=== PATIENT | male | born 1960 | race Caucasian/White ===

== ENCOUNTER → 2018-09-19 10:19 | Outpatient (CLI) | payer MEDICARE, SELFPAY ==
[2018-09-19 10:59] LABS: Add Manual Diff / Slide Review NO; Basophils Percent Auto 0.3 % (0-2); Eosinophils Percent Auto 0.1 % (2-4); Hematocrit 42.3 % (41-53); Hemoglobin 14.5 g/dL (13.5-17.5); Lymphocytes Percent Auto 12.9 % (25-40); Mean Corpuscular HGB Conc 34.2 % (30-36); Mean Corpuscular Hemoglobin 30.6 PG (26-34); Mean Corpuscular Volume 89.3 fL (80-100); Monocytes Percent Auto 6.9 % (3-14); Neutrophils Absolute Auto 7700 /uL (3000-5900); Neutrophils Percent Auto 79.8 % (50-75); Platelet Count 283 X10^3/uL (150-400); Red Blood Cell Count 4.73 X10^6/uL (4.5-5.9); Red Cell Distribution Width 12.9 % (11.6-14.8); White Blood Cell Count 9.7 X10^3/uL (4.5-11.0)
[2018-09-19 11:06] LABS: Alanine Aminotransferase 32 IU/L (21-72); Albumin 4.7 g/dL (3.5-5.0); Albumin Globulin Ratio 1.9 (1.0-2.8); Alkaline Phosphatase 74 U/L (38-126); Aspartate Aminotransferase 32 IU/L (17-59); Bilirubin Total 0.5 mg/dL (0.2-1.3); Blood Urea Nitrogen 10 mg/dL (9-20); Calcium 9.2 mg/dL (8.4-10.2); Carbon Dioxide 31 mmol/L (22-32); Chloride 96 mmol/L (98-107); Cholesterol 177 mg/dL (140-199); Estimated Glomerular Filt Rate > 60.0 mL/min (>60); Globulin 2.5 g/dL (1.7-4.1); Glucose 102 mg/dL (80-110); HDL Cholesterol 59 mg/dL (40-60); HEMOLYSIS < 15 (0-50); LDL Cholesterol Calculated 92 mg/dL (<100); Potassium 3.9 mmol/L (3.4-5.1); Sodium 138 mmol/L (137-145); Total Protein 7.2 g/dL (6.3-8.2); Triglycerides 129 mg/dL (35-150)
== END ==
PROVIDERS: PCP Family Medicine; Visit Provider Family Medicine
DX: E78.5 Hyperlipidemia, unspecified (principal); I10 Essential (primary) hypertension
CPT/HCPCS: 36415; 80053; 80061; 85025

== ENCOUNTER → 2019-09-08 09:31 | Outpatient (CLI) | payer MEDICARE, SELFPAY ==
[2019-09-08 11:04] LABS: Add Manual Diff / Slide Review NO; Basophils Absolute Auto 0 /uL (0-100); Basophils Percent Auto 0.5 % (0-2); Eosinophils Absolute Auto 0 /uL (0-450); Eosinophils Percent Auto 0.5 % (2-4); Hematocrit 46.6 % (41-53); Hemoglobin 15.9 g/dL (13.5-17.5); Lymphocytes Absolute Auto 1600 /uL (1100-4500); Lymphocytes Percent Auto 17.1 % (25-40); Mean Corpuscular HGB Conc 34.2 % (30-36); Mean Corpuscular Hemoglobin 31.2 PG (26-34); Mean Corpuscular Volume 91.2 fL (80-100); Monocytes Absolute Auto 700 /uL (0-900); Neutrophils Absolute Auto 6900 /uL (1500-7000); Neutrophils Percent Auto 73.9 % (50-75); Platelet Count 289 X10^3/uL (150-400); Red Blood Cell Count 5.11 X10^6/uL (4.5-5.9); White Blood Cell Count 9.3 X10^3/uL (4.5-11.0)
[2019-09-08 11:09] LABS: Alanine Aminotransferase 44 IU/L (<50); Albumin 5.1 g/dL (3.5-5.0); Alkaline Phosphatase 72 U/L (38-126); Aspartate Aminotransferase 39 IU/L (17-59); Bilirubin Total 0.7 mg/dL (0.2-1.3); Blood Urea Nitrogen 13 mg/dL (9-20); Calcium 10.1 mg/dL (8.4-10.2); Carbon Dioxide 28 mmol/L (22-32); Chloride 98 mmol/L (98-107); Cholesterol 288 mg/dL (140-199); Estimated Glomerular Filt Rate > 60.0 mL/min (>60); Globulin 2.6 g/dL (1.7-4.1); Glucose 108 mg/dL (80-110); HDL Cholesterol 52 mg/dL (40-60); HEMOLYSIS < 15 (0-50); LDL Cholesterol Calculated 167 mg/dL (<100); Potassium 4.9 mmol/L (3.4-5.1); Sodium 138 mmol/L (137-145); Total Protein 7.7 g/dL (6.3-8.2); Triglycerides 345 mg/dL (35-150); Uric Acid 7.1 mg/dL (3.5-8.5)
[2019-09-08 11:12] LABS: Erythrocyte Sedimentation Rate 1 MM/HR (0-15)
[2019-09-08 11:38] LABS: Prostate Specific Antigen 2.36 ng/mL (0.10-4.00)
== END ==
PROVIDERS: PCP Family Medicine; Visit Provider Family Medicine
DX: Z12.5 Encounter for screening for malignant neoplasm of prostate (principal); E78.5 Hyperlipidemia, unspecified; I10 Essential (primary) hypertension; M10.9 Gout, unspecified; M19.90 Unspecified osteoarthritis, unspecified site
CPT/HCPCS: 36415; 80053; 80061; 84153; 84550; 85025; 85651

== ENCOUNTER → 2020-04-08 11:35 | Outpatient (CLI) | payer MEDICARE, SELFPAY ==
[2020-04-08 12:59] LABS: Cholesterol 176 mg/dL (140-199); HDL Cholesterol 57 mg/dL (40-60); LDL Cholesterol Calculated 91 mg/dL (<100); Triglycerides 140 mg/dL (35-150)
[2020-04-08 14:19] LABS: BUN Creatinine Ratio 16.7 (6-22); Blood Urea Nitrogen 16 mg/dL (9-20); Carbon Dioxide 28 mmol/L (22-32); Chloride 96 mmol/L (98-107); Estimated Glomerular Filt Rate > 60.0 mL/min (>60); Glucose 110 mg/dL (80-110); HEMOLYSIS < 15 (0-50); Potassium 4.5 mmol/L (3.4-5.1); Sodium 134 mmol/L (137-145)
== END ==
PROVIDERS: PCP Student in an Organized Health Care Education/Training Program; Referring Provider Student in an Organized Health Care Education/Training Program; Visit Provider Student in an Organized Health Care Education/Training Program
DX: E78.2 Mixed hyperlipidemia (principal); I10 Essential (primary) hypertension
CPT/HCPCS: 36415; 80048; 80061

== ENCOUNTER 2020-06-13 13:31 | Observation (INO) | payer MEDICARE, SELFPAY ==
[2020-06-13] VITALS (11 sets, daily range): BP systolic 130–186; BP diastolic 76–90; PULSE 71–98; RESP 11–23; TEMP 36.4–37.2; O2SAT 98–100; BMI 25.8
--- NOTE | 2020-06-13 13:57 | DI.RAD.S_ITS ---
PROCEDURE: XR CHEST 1V INDICATIONS: chest pain TECHNIQUE: One view of the chest was acquired. COMPARISON: None. FINDINGS: Surgical changes and devices: None. Lungs and pleura: Lungs are clear. No pleural effusions or pneumothorax. Mediastinum: Mediastinal contours appear normal. Heart size is normal. Bones and chest wall: No suspicious bony lesions. Overlying soft tissues appear unremarkable. IMPRESSION: Normal for age, source of current hiatal hernia symptoms is not seen. Dictated by: Michael Maradiaga M.D. on 06/13/2020 at 14:51 Approved by: Michael Maradiaga M.D. on 06/13/2020 at 14:51
[2020-06-13 14:24] LABS: Add Manual Diff / Slide Review NO; Basophils Absolute Auto 0 /uL (0-100); Basophils Percent Auto 0.2 % (0-2); Eosinophils Absolute Auto 0 /uL (0-450); Eosinophils Percent Auto 0.2 % (2-4); Hematocrit 38.7 % (41-53); Hemoglobin 13.5 g/dL (13.5-17.5); Lymphocytes Absolute Auto 1200 /uL (1100-4500); Lymphocytes Percent Auto 12.3 % (25-40); Mean Corpuscular HGB Conc 34.8 % (30-36); Mean Corpuscular Hemoglobin 30.3 PG (26-34); Monocytes Absolute Auto 800 /uL (0-900); Monocytes Percent Auto 7.9 % (3-14); Neutrophils Absolute Auto 7800 /uL (1500-7000); Neutrophils Percent Auto 79.4 % (50-75); Platelet Count 266 X10^3/uL (150-400); Red Blood Cell Count 4.45 X10^6/uL (4.5-5.9); Red Cell Distribution Width 12.5 % (11.6-14.8); White Blood Cell Count 9.9 X10^3/uL (4.5-11.0)
[2020-06-13 14:31] LABS: Prothrombin Time 12.1 SECONDS (10.1-12.7)
[2020-06-13 14:34] LABS: PTT Partial Thromboplastin Tim 32 SECONDS (26.4-36.2)
[2020-06-13 14:36] LABS: Alanine Aminotransferase 28 IU/L (<50); Albumin 4.7 g/dL (3.5-5.0); Albumin Globulin Ratio 1.8 (1.0-2.8); Alkaline Phosphatase 68 U/L (38-126); Aspartate Aminotransferase 29 IU/L (17-59); BUN Creatinine Ratio 12.6 (6-22); Bilirubin Total 0.8 mg/dL (0.2-1.3); Blood Urea Nitrogen 13 mg/dL (9-20); Calcium 9.5 mg/dL (8.4-10.2); Carbon Dioxide 27 mmol/L (22-32); Chloride 88 mmol/L (98-107); Creatine Kinase 73 U/L (55-170); Estimated Glomerular Filt Rate > 60.0 mL/min (>60); Globulin 2.6 g/dL (1.7-4.1); Glucose 99 mg/dL (80-110); HEMOLYSIS < 15 (0-50); Lipase 89 U/L (23-300); Potassium 3.2 mmol/L (3.4-5.1); Sodium 127 mmol/L (137-145); Total Protein 7.3 g/dL (6.3-8.2)
[2020-06-13 14:47] LABS: Troponin I < 0.012 ng/mL (0.01-0.034)
--- NOTE | 2020-06-13 15:00 | ED_ITS ---
HPI - Chest Pain General Chief Complaint: Chest Pain Stated Complaint: Thinks Had Covid in January, Low BP,Left Sided Chest Time Seen by Provider: 06/13/20 14:03 Source: patient Mode of arrival: Ambulatory History of Present Illness HPI narrative: Patient complains of off and on left-sided chest may raise his left arm and back for the past few days. Has had a dyspnea. Diaphoresis but no nausea. Off and on dyspnea. No syncope, patient states blood pressure at home has been low below 100. No fever chills cough cold congestion. Patient states not felt like himself. Has felt tired and weak Related Data Home Medications Medication Instructions Recorded Confirmed atenolol 25 mg PO QDAY 06/13/20 06/13/20 Previous Rx's Medication Instructions Recorded cyclobenzaprine 10 mg tablet 10 mg PO BID #180 tab 04/08/20 lisinopril 20 1 tab PO QDAY #90 tab 04/08/20 mg-hydrochlorothiazide 25 mg tablet simvastatin 20 mg tablet 20 mg PO DAILY #90 tab 04/08/20 oxycodone 10 mg tablet 10 mg PO DAILY PRN #60 tab 05/17/20 Allergies Allergy/AdvReac Type Severity Reaction Status Date / Time aspirin [ASPIRIN] Allergy Unknown Verified 10/26/19 10:04 Penicillins [PENICILLINS] Allergy Unknown Verified 10/26/19 10:04 Review of Systems Review of Systems Narrative: GENERAL: Denies chills, malaise, fever, sweats. Complains of malaise and fatigue HEENT: Denies sinus pain, ear pain, sore throat, difficulty swallowing, dizziness. RESPIRATORY: Denies dyspnea, cough, wheezing, hemoptysis, sputum. CARDIOVASCULAR: Denies palpitations, orthopnea, edema, complains of chest pain GASTROINTESTINAL: Denies nausea, vomiting, abdominal pain, diarrhea, constipation, melena. : Denies dysuria, frequency, incontinence, hematuria, urinary retention. MUSCULOSKELETAL: denies weakness, joint pain, or bony pain SKIN: Denies rash, skin lesions, or other NEUROLOGIC: Denies weakness, headache, numbness, change in speech, confusion, seizures, incoordination. PSYCHIATRIC: No concerning psychosocial issues. ROS Unobtainable: All systems reviewed & are unremarkable except as noted in HPI and below Patient History Medical History Heart valve disease (Acute) Hx of myocardial infarction (Acute) Labile hypertension (Chronic) Surgical History History of repair of hiatal hernia Status post laparoscopic cholecystectomy (11/28/99) Family History Father Age: 89 Essential hypertension Mother Age: 87 Malignant neoplasm of urinary bladder, unspecified site Kidney malignancy, unspecified laterality Essential hypertension Hyperlipidemia Cerebrovascular accident (CVA), unspecified mechanism Social History household members: none Smoking Status: Never smoker Smokeless tobacco user: chewing tobacco alcohol intake: current Smoking Status: Never smoker alcohol intake frequency: holidays/special occasions only Substance Use Type: does not use Exam Narrative Exam Narrative: GENERAL: patient appears stated age. Well-nourished, well- developed patient, in no distress, not toxic HEAD: Atraumatic. Normocephalic. EYES: Pupils equal round and reactive. Extraocular motions intact. No scleral icterus. No injection or drainage. ENT: Nose without bleeding, purulent drainage. Throat without erythema, tonsillar hypertrophy or exudate. Airway patent. NECK: Trachea midline. Non tender CARDIOVASCULAR: Regular rate and rhythm without murmurs, gallops, or rubs. RESPIRATORY: Clear to auscultation. Breath sounds equal bilaterally. No wheezes, rales, or rhonchi. GASTROINTESTINAL: Abdomen soft, non-tender, nondistended. EXTREMITIES: No edema or joint tenderness. BACK: Nontender without deformity or crepitance. No flank tenderness. NEURO: AOx3. SKIN: No rash or erythema of visible areas PSYCH: Not anxious, is cooperative Initial Vital Signs Initial Vital Signs: Vital Signs Temperature 99.0 F 06/13/20 13:49 Pulse Rate 98 H 06/13/20 13:49 Respiratory Rate 16 06/13/20 13:49 Blood Pressure 186/90 H 06/13/20 13:49 Pulse Oximetry 98 06/13/20 13:49 Course Course Course Narrative: Chest pain-free here. Not requiring nitroglycerin. Patient allergic to aspirin. Decision to Admit Date: 06/13/20 Decision to Admit time: 17:07 Orders Ordered: Acetaminophen (Tylenol) 650 mg PO Q6HR PRN PRN Reason: Fever/Mild Pain (1-3) Cyclobenzaprine HCl (Flexeril) 10 mg PO BID [facility] Last Admin: 06/14/20 00:25 Dose: 10 mg Documented by: ALISHA Cyclobenzaprine HCl (Flexeril) 5 mg PO PRN PRN PRN Reason: Sleep Docusate Sodium (Colace) 100 mg PO BID [facility] Last Admin: 06/13/20 21:38 Dose: Not Given Documented by: ALISHA Sodium Chloride (Normal Saline 0.9%) 1,000 mls @ 100 mls/hr IV CONT [facility] Last Infusion: 06/14/20 05:07 Dose: 100 mls/hr Documented by: Admin: 06/13/20 21:27 Dose: 50 mls/hr Documented by: ALISHA Morphine Sulfate (Morphine) 2 mg IV Q4HR PRN PRN Reason: Pain, Moderate (4-6) Naloxone HCl (Narcan) 0.2 mg IV Q2MIN PRN PRN Reason: Opiate Reversal Nitroglycerin (Nitrostat) 0.4 mg SL [id number] PRN PRN Reason: Chest Pain Ondansetron HCl (Zofran) 4 mg IV Q6HR PRN PRN Reason: Nausea And Vomiting Oxycodone HCl (Percolone) 5 mg PO Q6H PRN PRN Reason: Pain, Moderate (4-6) Simvastatin (Zocor) 20 mg PO DAILY [facility] Discontinued Medications Potassium Chloride (Klor-Con M20) 40 meq PO NOW ONE Stop: 06/14/20 04:58 Last Admin: 06/14/20 05:06 Dose: 40 meq Documented by: DREW Reevaluation(s) Reevaluation #1: Currently no chest pain no complaints at this time Time: 17:07 Consultations Consultation #1: Spoke with hospitalist Dr. Street, will admit observation Time: 17:07 Vital Signs Vital signs: Vital Signs - 8 hr 06/13/20 13:49 06/13/20 15:00 06/13/20 15:30 Temperature 99.0 F Pulse Rate 98 H 81 75 Respiratory Rate 16 17 16 Blood Pressure 186/90 H Pulse Oximetry 98 100 100 MDM - Chest Pain Differential Diagnosis Differential diagnosis: Likely stable angina, unstable angina pectoris and chest pain Lab Data Attestation: I reviewed the patient's lab results. Result diagrams: 06/14/20 04:45 06/14/20 04:45 Labs: Lab Results 06/13/20 06/13/20 06/13/20 Range/Units 14:10 14:10 14:10 WBC 9.9 (4.5-11.0) X10^3/uL RBC 4.45 L (4.5-5.9) X10^6/uL Hgb 13.5 (13.5-17.5) g/dL Hct 38.7 L (41-53) % MCV 87.0 (80-100) fL MCH 30.3 (26-34) PG MCHC 34.8 (30-36) % RDW 12.5 (11.6-14.8) % Plt Count 266 (150-400) X10^3/uL Neut % (Auto) 79.4 H (50-75) % Lymph % (Auto) 12.3 L (25-40) % [place] % (Auto) 7.9 (3-14) % Eos % (Auto) 0.2 L (2-4) % Baso % (Auto) 0.2 (0-2) % Neut # (Auto) 7800 H (9131-6903) /uL Lymph # (Auto) 1200 (7206-0589) /uL [place] # (Auto) 800 (0-900) /uL Eos # (Auto) 0 (0-450) /uL Baso # (Auto) 0 (0-100) /uL PT 12.1 (10.1-12.7) SECONDS INR 1.0 (0.9-1.3) APTT 32 (26.4-36.2) SECONDS D-Dimer (<230) ng/mL Sodium 127 L (137-145) mmol/L Potassium 3.2 L (3.4-5.1) mmol/L Chloride 88 L (98-107) mmol/L Carbon Dioxide 27 (22-32) mmol/L BUN 13 (9-20) mg/dL Creatinine 1.03 (0.66-1.25) mg/dL Estimated GFR > 60.0 (>60) mL/min BUN/Creatinine Ratio 12.6 (6-22) Glucose 99 (80-110) mg/dL Calcium 9.5 (8.4-10.2) mg/dL Total Bilirubin 0.8 (0.2-1.3) mg/dL AST 29 (17-59) IU/L ALT 28 (<50) IU/L Alkaline Phosphatase 68 (38-126) U/L Total Creatine Kinase 73 (55-170) U/L CK-MB (CK-2) TNP CK-MB (CK-2) Rel Index TNP Troponin I < 0.012 (0.01-0.034) ng/mL Total Protein 7.3 (6.3-8.2) g/dL Albumin 4.7 (3.5-5.0) g/dL Globulin 2.6 (1.7-4.1) g/dL Albumin/Globulin Ratio 1.8 (1.0-2.8) Lipase 89 (23-300) U/L U Opiates 300ng/mL cut (Negative) Ur Oxycodone Screen (Negative) Urine Methadone Screen (Negative) Ur Barbiturates Screen (Negative) U Tricyclic Antidepress (Negative) Ur Phencyclidine Scrn (Negative) Ur Amphetamines Screen (Negative) U Methamphetamines Scrn (Negative) Ur MDMA Scrn (Ecstasy) (Negative) U Benzodiazepines Scrn (Negative) Urine Cocaine Screen (Negative) U Marijuana (THC) Screen (Negative) 06/13/20 06/13/20 Range/Units 14:21 17:22 WBC (4.5-11.0) X10^3/uL RBC (4.5-5.9) X10^6/uL Hgb (13.5-17.5) g/dL Hct (41-53) % MCV (80-100) fL MCH (26-34) PG MCHC (30-36) % RDW (11.6-14.8) % Plt Count (150-400) X10^3/uL Neut % (Auto) (50-75) % Lymph % (Auto) (25-40) % [place] % (Auto) (3-14) % Eos % (Auto) (2-4) % Baso % (Auto) (0-2) % Neut # (Auto) (1003-3522) /uL Lymph # (Auto) (9999-4202) /uL [place] # (Auto) (0-900) /uL Eos # (Auto) (0-450) /uL Baso # (Auto) (0-100) /uL PT (10.1-12.7) SECONDS INR (0.9-1.3) APTT (26.4-36.2) SECONDS D-Dimer < 200 (<230) ng/mL Sodium (137-145) mmol/L Potassium (3.4-5.1) mmol/L Chloride (98-107) mmol/L Carbon Dioxide (22-32) mmol/L BUN (9-20) mg/dL Creatinine (0.66-1.25) mg/dL Estimated GFR (>60) mL/min BUN/Creatinine Ratio (6-22) Glucose (80-110) mg/dL Calcium (8.4-10.2) mg/dL Total Bilirubin (0.2-1.3) mg/dL AST (17-59) IU/L ALT (<50) IU/L Alkaline Phosphatase (38-126) U/L Total Creatine Kinase (55-170) U/L CK-MB (CK-2) CK-MB (CK-2) Rel Index Troponin I (0.01-0.034) ng/mL Total Protein (6.3-8.2) g/dL Albumin (3.5-5.0) g/dL Globulin (1.7-4.1) g/dL Albumin/Globulin Ratio (1.0-2.8) Lipase (23-300) U/L U Opiates 300ng/mL cut Negative (Negative) Ur Oxycodone Screen Negative (Negative) Urine Methadone Screen Negative (Negative) Ur Barbiturates Screen Negative (Negative) U Tricyclic Antidepress Positive H (Negative) Ur Phencyclidine Scrn Negative (Negative) Ur Amphetamines Screen Negative (Negative) U Methamphetamines Scrn Negative (Negative) Ur MDMA Scrn (Ecstasy) Negative (Negative) U Benzodiazepines Scrn Negative (Negative) Urine Cocaine Screen Negative (Negative) U Marijuana (THC) Screen Negative (Negative) Imaging Data Chest x-ray: Radiologist's Impression: [address] [place] [id number] XRay Report Signed Patient: Regino Ingram [facility]#: [id number] : 8Acct:[id number] Age/Sex: 60 / MDate of Service: 06/13/20 Loc: ED Accession Number: [id number] Procedure: XR chest 1V Ordering Provider: Enzo Hermosillo MD PROCEDURE: XR CHEST 1V INDICATIONS: chest pain TECHNIQUE: One view of the chest was acquired. COMPARISON: None. FINDINGS: Surgical changes and devices: None. Lungs and pleura: Lungs are clear. No pleural effusions or pneumothorax. Mediastinum: Mediastinal contours appear normal. Heart size is normal. Bones and chest wall: No suspicious bony lesions. Overlying soft tissues appear unremarkable. IMPRESSION: Normal for age, source of current hiatal hernia symptoms is not seen. Dictated by: Michael Maradiaga M.D. on 06/13/2020 at 14:51 Approved by: Michael Maradiaga M.D. on 06/13/2020 at 14:51 ECG Data Attestation: I personally reviewed and interpreted this ECG as follows: Interpretation: Sinus rhythm ventricular rate 84, no ST elevation or depression MDM Narrative Medical decision making narrative: Not had stress test over 13 years. Apparent history of coronary disease. Patient does not smoke cigarettes. Appropriate for admission hospital for stress test. Left-sided chest pain rating left arm. With hypokalemia as well as hyponatremia Discharge Plan Departure Patient Disposition: Admitted as Observation Clinical Impression: Chest pain Qualifiers: Chest pain type: unspecified Qualified Code(s): R07.9 - Chest pain, unspecified Discharge Date/Time: 06/13/20 18:57 Referrals: Roland Bentley MD [Primary Care Provider] - Admit Date/Time: 06/13/20 18:02 Admit Provider: Georgia Street ED Sign-out Cosign ED Attending Cosignature Attestation: I was immediately available in the department for consultation. This documentation has been reviewed and I agree with assessment and plan. Supervised by Enzo Hermosillo MD
[2020-06-13 15:27] LABS: D Dimer < 200 ng/mL (<230)
[2020-06-13 17:44] LABS: UR Morphine/Opiate cutoff 300 Negative (Negative); Ur Creatinine Normal (Normal); Ur Specific Gravity Normal (Normal); Urine Amphetamines Negative (Negative); Urine Barbiturates Negative (Negative); Urine Benzodiazepines Negative (Negative); Urine Cocaine Negative (Negative); Urine MDMA Negative (Negative); Urine Methadone Negative (Negative); Urine Methamphetamines Negative (Negative); Urine Oxycodone Negative (Negative); Urine Phencyclidine Negative (Negative); Urine Tetrahydrocannabinol Negative (Negative); Urine Tricyclic Antidepressant Positive (Negative); Urine pH Normal (Normal)
[2020-06-13 21:24] LABS: Creatine Kinase 66 U/L (55-170); Magnesium 1.8 mg/dL (1.6-2.3)
[2020-06-13] MEDS: DOCUSATE 100 MG CAPSULE PO (21:27)
[2020-06-13] MEDS: SODIUM CHLORIDE 0.9% 1,000 ML 50 ML IV (21:27)
[2020-06-13 21:36] LABS: Troponin I < 0.012 ng/mL (0.01-0.034)
[2020-06-13 23:23] LABS: COVID19 -Nasal RAPID Negative (Negative)
[2020-06-14] VITALS (9 sets, daily range): BP systolic 115–149; BP diastolic 56–87; PULSE 64–103; RESP 18–22; TEMP 36.2–37.2; O2SAT 96–100
[2020-06-14] MEDS: CYCLOBENZAPRINE 10 MG TABLET PO ×2 (00:25→09:43)
--- NOTE | 2020-06-14 04:46 | P.HP_ITS ---
History of Present Illness History of Present Illness Date Patient Seen: 06/13/20 Time Patient Seen: 23:15 Chief complaint: Thinks Had Covid in January, Low BP,Left Sided Chest Narrative: Regino Ingram is a 60-year-old male with a stated history of an CO at the age of 33 due to ?bad valves, GERD, hyperlipidemia, hiatal hernia, and chronic back pain currently disabled presented to the emergency department with chest pain and wanted to find out whether not he had COVID-19 back in January. He stated that the pain started 9 days ago and affects his shoulder and left arm. He read it resolved when he came into the emergency department. He did state that he was diaphoretic, he has had shortness of breath which has since resolved today, he states the prior history of cardiac issues, he has had nausea only no vomiting, denies dysuria, he states he has chronic muscle aches and pains particularly his back, he has a history of rosacea, and he states that his arms become numb and it is relieved by burping. I note in his prior PCP records that the patient has been reluctant to take blood pressure medications and anti hyperlipidemic medications stating that statins have caused bladder cancer in people. He wanted to know if there was any chance we could order a test to determine whether he had a hiatal hernia. In the emergency department they did acute abdominal chest CT which ruled out any acute process the report did not conclude he had a hiatal hernia. Patient's 1st 2 troponins were normal. Temperature 97.3?, blood pressure 125/66, heart rate 69, respiratory rate 20, oxygen saturation of 100% on room air, he weighs 83 kilos, BMI of 25.8. WBC 9.9, RBC 4.4, hemoglobin 13.5, hematocrit 38.7, platelet count 266, D-dimer was negative, sodium 127, potassium 3.2, chloride 88, CO2 27, creatinine 1.03, BUN 13, GFR greater than 60, glucose 99, calcium 9.5, magnesium 1.8, liver enzymes are within normal limits, UDS was negative except for tricyclic antidepressants, COVID-19 negative. Patient History Medical History Heart valve disease (Acute) Hx of myocardial infarction (Acute) Labile hypertension (Chronic) Surgical History History of repair of hiatal hernia Status post laparoscopic cholecystectomy (11/28/99) Family & Social History Family History Father Age: 89 Essential hypertension Mother Age: 87 Malignant neoplasm of urinary bladder, unspecified site Kidney malignancy, unspecified laterality Essential hypertension Hyperlipidemia Cerebrovascular accident (CVA), unspecified mechanism Social History: household members none Prior Living Arrangements House Safety & Behavioral: Feels Safe in Current Yes Environment Been Physically Hurt or No Threatened By a Person Suicidal Ideation Description None Suicide Plan Description No Plan Tobacco & Substance use: Smoking Status Never smoker alcohol intake current alcohol intake frequency holiday/special occasion Substance Use Type does not use Meds Home Medications and Allergies Home Medications Medication Instructions Recorded Confirmed Type cyclobenzaprine 10 mg tablet 10 mg PO BID #180 tab 04/08/20 06/13/20 Rx lisinopril 20 1 tab PO QDAY #90 tab 04/08/20 06/13/20 Rx mg-hydrochlorothiazide 25 mg tablet simvastatin 20 mg tablet 20 mg PO DAILY #90 tab 04/08/20 06/13/20 Rx oxycodone 10 mg tablet 10 mg PO DAILY PRN #60 tab 05/17/20 06/13/20 Rx atenolol 25 mg PO QDAY 06/13/20 06/13/20 History Allergies Allergy/AdvReac Type Severity Reaction Status Date / Time aspirin [ASPIRIN] Allergy Unknown Verified 10/26/19 10:04 Penicillins [PENICILLINS] Allergy Unknown Verified 10/26/19 10:04 Review of Systems Review of Systems ROS: Yes All systems reviewed with the patient and are negative except as otherwise documented Exam Vital Signs (past 8 hours): - 06/14/20 00:34 06/14/20 04:03 Temperature 97.1 F L 97.3 F L Pulse Rate 64 69 Respiratory Rate 22 20 Blood Pressure 115/56 L 125/66 Pulse Oximetry 100 100 Oxygen Delivery Method Room Air Oxygen Flow Rate 0 Narrative Exam Narrative: Gen: Alert, oriented, well-developed 60 y.o. male, somewhat disheveled HEENT: normocephalic, atraumatic, conjunctiva clear, sclera non-icteric, oral mucosa pink and moist Neck: supple, full ROM, no JVD, trachea is midline Resp: Lungs CTA, non-labored breathing CV: RRR, no murmur or rubs Abd: soft, non-tender, normoactive BTs Skin: Facial flushing, no lesions or rashes, dry and intact Neuro: Alert and oriented X 4 w/no focal deficits. Speech clear and coherent. Extremities: moves all 4 extremities, is ambulatory, negative Lico?s sign Psyche: normal mood and affect. Objective Labs Result Diagrams: 06/13/20 14:10 06/13/20 14:10 Labs: Laboratory Results - last 24 hr 06/13/20 06/13/20 06/13/20 14:10 14:10 14:10 WBC 9.9 RBC 4.45 L Hgb 13.5 Hct 38.7 L MCV 87.0 MCH 30.3 MCHC 34.8 RDW 12.5 Plt Count 266 Neut % (Auto) 79.4 H Lymph % (Auto) 12.3 L [place] % (Auto) 7.9 Eos % (Auto) 0.2 L Baso % (Auto) 0.2 Neut # (Auto) 7800 H Lymph # (Auto) 1200 [place] # (Auto) 800 Eos # (Auto) 0 Baso # (Auto) 0 PT 12.1 INR 1.0 APTT 32 D-Dimer Sodium 127 L Potassium 3.2 L Chloride 88 L Carbon Dioxide 27 BUN 13 Creatinine 1.03 Estimated GFR > 60.0 BUN/Creatinine Ratio 12.6 Glucose 99 Calcium 9.5 Magnesium Total Bilirubin 0.8 AST 29 ALT 28 Alkaline Phosphatase 68 Total Creatine Kinase 73 CK-MB (CK-2) TNP CK-MB (CK-2) Rel Index TNP Troponin I < 0.012 Total Protein 7.3 Albumin 4.7 Globulin 2.6 Albumin/Globulin Ratio 1.8 Lipase 89 Nasal Screen MRSA (PCR) U Opiates 300ng/mL cut Ur Oxycodone Screen Urine Methadone Screen Ur Barbiturates Screen U Tricyclic Antidepress Ur Phencyclidine Scrn Ur Amphetamines Screen U Methamphetamines Scrn Ur MDMA Scrn (Ecstasy) U Benzodiazepines Scrn Urine Cocaine Screen U Marijuana (THC) Screen COVID-19 PCR 06/13/20 06/13/20 06/13/20 14:21 17:22 21:04 WBC RBC Hgb Hct MCV MCH MCHC RDW Plt Count Neut % (Auto) Lymph % (Auto) [place] % (Auto) Eos % (Auto) Baso % (Auto) Neut # (Auto) Lymph # (Auto) [place] # (Auto) Eos # (Auto) Baso # (Auto) PT INR APTT D-Dimer < 200 Sodium Potassium Chloride Carbon Dioxide BUN Creatinine Estimated GFR BUN/Creatinine Ratio Glucose Calcium Magnesium Total Bilirubin AST ALT Alkaline Phosphatase Total Creatine Kinase 66 CK-MB (CK-2) TNP CK-MB (CK-2) Rel Index TNP Troponin I < 0.012 Total Protein Albumin Globulin Albumin/Globulin Ratio Lipase Nasal Screen MRSA (PCR) U Opiates 300ng/mL cut Negative Ur Oxycodone Screen Negative Urine Methadone Screen Negative Ur Barbiturates Screen Negative U Tricyclic Antidepress Positive H Ur Phencyclidine Scrn Negative Ur Amphetamines Screen Negative U Methamphetamines Scrn Negative Ur MDMA Scrn (Ecstasy) Negative U Benzodiazepines Scrn Negative Urine Cocaine Screen Negative U Marijuana (THC) Screen Negative COVID-19 PCR 06/13/20 06/13/20 06/13/20 21:04 22:00 22:00 WBC RBC Hgb Hct MCV MCH MCHC RDW Plt Count Neut % (Auto) Lymph % (Auto) [place] % (Auto) Eos % (Auto) Baso % (Auto) Neut # (Auto) Lymph # (Auto) [place] # (Auto) Eos # (Auto) Baso # (Auto) PT INR APTT D-Dimer Sodium Potassium Chloride Carbon Dioxide BUN Creatinine Estimated GFR BUN/Creatinine Ratio Glucose Calcium Magnesium 1.8 Total Bilirubin AST ALT Alkaline Phosphatase Total Creatine Kinase CK-MB (CK-2) CK-MB (CK-2) Rel Index Troponin I Total Protein Albumin Globulin Albumin/Globulin Ratio Lipase Nasal Screen MRSA (PCR) U Opiates 300ng/mL cut Ur Oxycodone Screen Urine Methadone Screen Ur Barbiturates Screen U Tricyclic Antidepress Ur Phencyclidine Scrn Ur Amphetamines Screen U Methamphetamines Scrn Ur MDMA Scrn (Ecstasy) U Benzodiazepines Scrn Urine Cocaine Screen U Marijuana (THC) Screen COVID-19 PCR Cancelled Negative 06/14/20 01:33 WBC RBC Hgb Hct MCV MCH MCHC RDW Plt Count Neut % (Auto) Lymph % (Auto) [place] % (Auto) Eos % (Auto) Baso % (Auto) Neut # (Auto) Lymph # (Auto) [place] # (Auto) Eos # (Auto) Baso # (Auto) PT INR APTT D-Dimer Sodium Potassium Chloride Carbon Dioxide BUN Creatinine Estimated GFR BUN/Creatinine Ratio Glucose Calcium Magnesium Total Bilirubin AST ALT Alkaline Phosphatase Total Creatine Kinase CK-MB (CK-2) CK-MB (CK-2) Rel Index Troponin I Total Protein Albumin Globulin Albumin/Globulin Ratio Lipase Nasal Screen MRSA (PCR) Negative for mrsa U Opiates 300ng/mL cut Ur Oxycodone Screen Urine Methadone Screen Ur Barbiturates Screen U Tricyclic Antidepress Ur Phencyclidine Scrn Ur Amphetamines Screen U Methamphetamines Scrn Ur MDMA Scrn (Ecstasy) U Benzodiazepines Scrn Urine Cocaine Screen U Marijuana (THC) Screen COVID-19 PCR Assessment & Plan Assessment & Plan narrative: Regino Ingram will be observed overnight and ruled out for chest pain. It is more likely due to reflux, but his stated history places him in a higher risk category. Mild metabolic derangement with hypokalemia and hyponatremia, acute, present on admission -NS at 100 ml/hour -He is administered oral potassium 40 mEq X 1 -Recheck lytes in the am. Chest pain with fatigue -Nuclear stress test -Echocardiogram -Holding his atenolol Essential hypertension, chronic -Continue home dose of lisinopril 20 mg po daily -Resume beta [place] after stress test HLD, chronic -Continue home dose of simvastatin 20 mg po daily -Fasting lipid panel in the am CAD -Patient stated he did not undergo cardiac catheterization -Effort should be made to obtain old record, however this was 30 plus years ago -ASA not ordered due to patient's stated allergy, will need to confirm. Chronic back pain secondary to an old lifting injury -Continue oxycodone 5 mg po q 6 hours for pain -Continue home dose of cyclobenzaprine 10 mg give at bedtime. Consults: none Patient is observation status as his stay is not likely to exceed 2 midnights. FEN: NS at 100 ml/hour, NPO after midnight, advance to cardiac after stress test, BMP and magnesium in the am. VTE prophylaxis: Bilateral SCDs Dispo: probable discharge to home Code Status: full code as discussed with patient COVID-19 COVID-19 status: Negative Result date/Date tested (Pos, Neg/Pending): 06/13/20 Quality VTE Deep Vein Thrombosis/Pulmonary Embolism Present on Admission: No
[2020-06-14] MEDS: POTASSIUM CHLORIDE 20 MEQ TAB 40 MEQ PO (05:06)
[2020-06-14 05:33] LABS: Add Manual Diff / Slide Review NO; Basophils Absolute Auto 0 /uL (0-100); Basophils Percent Auto 0.4 % (0-2); Cholesterol 143 mg/dL (140-199); Eosinophils Absolute Auto 100 /uL (0-450); Eosinophils Percent Auto 0.8 % (2-4); HDL Cholesterol 44 mg/dL (40-60); Hemoglobin 13.7 g/dL (13.5-17.5); LDL Cholesterol Calculated 85 mg/dL (<100); Lymphocytes Absolute Auto 1300 /uL (1100-4500); Lymphocytes Percent Auto 20.1 % (25-40); Mean Corpuscular HGB Conc 34.3 % (30-36); Mean Corpuscular Hemoglobin 30.2 PG (26-34); Mean Corpuscular Volume 88.1 fL (80-100); Monocytes Absolute Auto 800 /uL (0-900); Monocytes Percent Auto 11.5 % (3-14); Neutrophils Absolute Auto 4500 /uL (1500-7000); Neutrophils Percent Auto 67.2 % (50-75); Platelet Count 231 X10^3/uL (150-400); Red Blood Cell Count 4.54 X10^6/uL (4.5-5.9); Red Cell Distribution Width 12.5 % (11.6-14.8); Triglycerides 71 mg/dL (35-150); White Blood Cell Count 6.7 X10^3/uL (4.5-11.0)
[2020-06-14 05:34] LABS: Alanine Aminotransferase 27 IU/L (<50); Albumin 4.4 g/dL (3.5-5.0); Albumin Globulin Ratio 1.8 (1.0-2.8); Alkaline Phosphatase 59 U/L (38-126); Aspartate Aminotransferase 29 IU/L (17-59); BUN Creatinine Ratio 13.2 (6-22); Bilirubin Total 0.8 mg/dL (0.2-1.3); Blood Urea Nitrogen 12 mg/dL (9-20); Calcium 9.6 mg/dL (8.4-10.2); Carbon Dioxide 33 mmol/L (22-32); Chloride 92 mmol/L (98-107); Estimated Glomerular Filt Rate > 60.0 mL/min (>60); Globulin 2.5 g/dL (1.7-4.1); Glucose 95 mg/dL (80-110); HEMOLYSIS < 15 (0-50); Potassium 3.8 mmol/L (3.4-5.1); Sodium 131 mmol/L (137-145); Total Protein 6.9 g/dL (6.3-8.2)
--- NOTE | 2020-06-14 08:00 | DI.NM.S_ITS ---
PROCEDURE: NM ALISA PERF SPECT R&S PHARM Rest and pharmacological stress myocardial perfusion SPECT with gated imaging and ejection fraction RADIOPHARMACEUTICAL: 12.5 mCi Tc-99m tetrafosmin IV at rest and 24.6 mCi Tc-99m tetrafosmin IV at peak effect of pharmacological stress. [id number] was performed. INDICATIONS: Chest pain TECHNIQUE: Radiopharmaceutical was injected at peak stress test, and also at rest. SPECT images were obtained. SPECT myocardial perfusion images were displayed in short axis, horizontal long axis, and vertical long axis views. Gated images were reviewed using TestCred software. COMPARISON: None. CARDIAC STRESS: A pharmacologic stress test was performed under the supervision of an attending staff, using an infusion of lexiscan 0.4mg IV X1. Hemodynamic data: There is normal blood pressure and heart rate response to pharmacologic stress. Symptoms: The patient denied anginal chest pain. Aminophylline: none EKG: No diagnostic changes of ischemia; no ectopy. FINDINGS: Raw data: There is good myocardial uptake of radiotracer. No significant motion artifacts. Zkuw-tn-[id number] ratio is 0.33 (normal is less than 0.38 for tetrafosmin tracer). Left ventricle function: Gated images demonstrate normal left ventricular wall thickening. No segmental wall motion abnormalities. No transient ischemic dilation; TID is 1.21 (normal less than 1.3). Left ventricle resting end diastolic volume is 75 mL. Left ventricle stress ejection fraction is 72%; normal range is above 45%. Myocardial perfusion: There is a mildly intense fixed defect in the basal inferior wall that is probably diaphragmatic attenuation than true prior infarction. No prone images could be done due back pain. IMPRESSION: Low risk, probably normal pharmaceutical nuclear stress test 1) No perfusion evidence of ischemia. There is a mildly intense fixed defect in the basal inferior wall that is probably diaphragmatic attenuation than true prior infarction but prior subendocardial infarction can not be definitely excluded. No prone images could be done due back pain. 2) Normal left ventricular size, wall motion, and systolic function (EF post stress 72%). 3) No ECG evidence of ischemia. 4) No angina during the study. 5) No prior nuclear stress test available for comparison. Dictated by: Berta Barrett MD on 06/14/2020 at 16:53 Approved by: Berta Barrett MD on 06/14/2020 at 16:57
[2020-06-14] MEDS: OXYCODONE IR 5 MG TABLET PO (09:43)
--- NOTE | 2020-06-14 09:45 | DI.ECHO.S_ITS ---
[facility] +---------+ : : [address] [place] [address] : : : : [id number] : : : : Phone: [phone] Echocardiogram Report + + :Name: AJ VEGA Study Date: 06/14/2020 Height: 69 in : :[facility] Weight: 182 lb : : Gender: Male BSA: 2.0 m2 : :: 1960 Age: 60 yrs BP: 138/81 mmHg: :Reason For Study: CHEST PAIN : :Ordering Physician: : :HOSPITALISTDANIELLE Performed By: Susie Sanchez : :Referring: MORENA CHILDERS : + + Interpretation Summary The left ventricle is normal in size and wall thickness. The ejection fraction is estimated to be 60-65%. The right ventricle is normal in size and function. No significant valvular pathology seen. Mild atherosclerotic plaque(s) in the aortic arch. Procedure: A two-dimensional transthoracic echocardiogram with color flow and Doppler was performed. The study quality was technically adequate. There is no prior echocardiogram noted for this patient. The patient was in sinus rhythm with heart rates between 88-95 bpm during the exam. Left Ventricle: The left ventricle is normal in size and wall thickness. There is no thrombus. The ejection fraction is estimated to be 60-65%. There are no focal wall motion abnormalities. Diastolic parameters suggest a relaxation abnormality of the left ventricle, consistent with probable normal filling pressures. Right Ventricle: The right ventricle is normal in size and function. Atria: Both atria are normal in size. The interatrial septum is intact with no evidence for an atrial septal defect. Mitral Valve: The mitral valve is normal in structure and function. There is trace mitral regurgitation. Aortic Valve: The aortic valve is trileaflet. The aortic valve opens well. There is no aortic valve stenosis. No aortic regurgitation is present. Tricuspid Valve: The tricuspid valve is normal in structure and function. Pulmonary artery pressures cannot be estimated because of the lack of a measurable TR jet velocity but the IVC suggests a CVP of around 3 mmHg. There is trace tricuspid regurgitation. Pulmonic Valve: The pulmonic valve leaflets are thin and pliable; valve motion is normal. There is no pulmonic valvular regurgitation. Great Vessels: The aortic root is normal size. The ascending aorta is at the upper limits of normal in size. Mild atherosclerotic plaque(s) in the aortic arch. The IVC is of normal diameter and collapses greater than 50% with a sniff. This suggests a low right atrial pressure of 3 mm Hg. Pericardium/ Pleura There is no pericardial effusion. There is no pleural effusion. MMode/2D Measurements & Calculations LVIDd: 4.3 cm LVOT diam: 2.2 cm LVIDs: 3.0 cm Ao root diam: 3.2 cm FS: 31.8 % asc Aorta Diam: 3.5 cm EPSS: 1.1 cm Ao Arch Diam (Prox Trans): 2.7 cm IVSd: 1.0 cm LVPWd: 0.89 cm LV metz. diameter/BSA (cm/m^2): 2.2 LV sys. diameter/BSA (cm/m^2): 1.5 LA A2 area: 13.9 cm2 RA long axis: 4.2 cm LA A4 area: 12.9 cm2 RA area: 12.8 cm2 LA length (vol): 4.6 cm RA vol: 33.5 ml LA vol: 33.3 ml RA : 16.9 ml/m2 LA vol index: 16.8 ml/m2 IVC diam: 1.2 cm RVD1 (basal): 3.0 cm TAPSE: 2.2 cm Doppler Measurements & Calculations Ao V2 max: 119.2 cm/sec LVOT Max Saul: 114.6 cm/sec Ao V2 mean: 85.9 cm/sec LV V1 max P.2 mmHg Ao max P.7 mmHg LV V1 VTI: 19.0 cm Ao mean P.3 mmHg FRANCISCO(I,D): 3.2 cm2 Ao V2 VTI: 23.0 cm FRANCISCO(V,D): 3.7 cm2 sev ratio: 0.82 FRANCISCO indexed to BSA (cm^2/m^2): 1.6 MV E max saul: 57.6 cm/sec PA V2 max: 78.0 cm/sec MV A max saul: 90.7 cm/sec PA V2 mean: 54.7 cm/sec MV E/A: 0.63 PA mean P.3 mmHg Med Peak E' Saul: 5.7 cm/sec PA pr(Accel): 28.9 mmHg E/E' med: 10.1 Lat Peak E' Saul: 4.1 cm/sec E/E' lat: 14.1 E/e' average: 12.1 MV dec time: 0.19 sec SVLVOT): 73.7 ml Reading Physician:02:44 PM
--- NOTE | 2020-06-14 11:15 | CM.DANOTE ---
DCP: Case received, EMR reviewed and met with patient. Introduced self and role. Was able to obtain some information from patient regarding his baseline activity level and living situation prior to hospitalization. DCP assessment completed with information currently available. Patient is a 60 year old male who admitted yesterday afternoon to the care of the hospitalist team. PCP: Dr. Bentley. Payer: confirmed: Medicare/ Patient came to the hospital via private vehicle secondary to having some chest discomfort, as well as weakness. Patient holds diagnosis of angina. He is her having a two part stress test today. Met with patient in his room. He is alert and oriented, independent as far as mobility. He lives alone, is single, unemployed. He is hoping to go home today. P: DCP to continue to follow. Patient should be able to go home when he is medically cleared after tests are complete. Saige Lopez RN/Education Site Manager
--- NOTE | 2020-06-14 12:57 | PC.NURSE ---
PT WITHOUT C/O CHEST PAIN OR PRESSURE THIS SHIFT- HE IS VERY FOCUSED ON HIS VITAL SIGNS AND MEASURES HIS OWN PORTABLE B/P WRIST CUFF COMPARING TO ICU MONITORS- HE DOES REPORT WEANING HIS BLOOD PRESSURE RX AT HOME ON HIS OWN BUT APPEARS TO FREQUENTLY CONFUSE HEART RATE WITH BLOOD PRESSURE-LUNGS CLEAR AND BOTH PARTS OF STRESS TEST ARE COMPLETE- REMAINS SALINE LOCKED
--- NOTE | 2020-06-14 17:33 | PM.DS.1 ---
History of Present Illness History of Present Illness Date Patient Seen: 06/14/20 Chief complaint: Thinks Had Covid in January, Low BP,Left Sided Chest Narrative: Regino Ingram is a 60-year-old male with a stated history of an RI at the age of 33 due to ?bad valves, GERD, hyperlipidemia, hiatal hernia, and chronic back pain currently disabled presented to the emergency department with chest pain and wanted to find out whether not he had COVID-19 back in January. He stated that the pain started 9 days ago and affects his shoulder and left arm. He read it resolved when he came into the emergency department. He did state that he was diaphoretic, he has had shortness of breath which has since resolved today, he states the prior history of cardiac issues, he has had nausea only no vomiting, denies dysuria, he states he has chronic muscle aches and pains particularly his back, he has a history of rosacea, and he states that his arms become numb and it is relieved by burping. I note in his prior PCP records that the patient has been reluctant to take blood pressure medications and anti hyperlipidemic medications stating that statins have caused bladder cancer in people. He wanted to know if there was any chance we could order a test to determine whether he had a hiatal hernia. In the emergency department they did acute abdominal chest CT which ruled out any acute process the report did not conclude he had a hiatal hernia. Patient's 1st 2 troponins were normal. Temperature 97.3?, blood pressure 125/66, heart rate 69, respiratory rate 20, oxygen saturation of 100% on room air, he weighs 83 kilos, BMI of 25.8. WBC 9.9, RBC 4.4, hemoglobin 13.5, hematocrit 38.7, platelet count 266, D-dimer was negative, sodium 127, potassium 3.2, chloride 88, CO2 27, creatinine 1.03, BUN 13, GFR greater than 60, glucose 99, calcium 9.5, magnesium 1.8, liver enzymes are within normal limits, UDS was negative except for tricyclic antidepressants, COVID-19 negative. Discharge Providers Provider Date of admission: 06/13/20 18:02 Discharge Date: 06/14/20 Primary care physician: Roland Bentley MD Discharge provider: Janine Claudio MD Summary Hospital Course Discharge Diagnosis: 1. Chest pain, etiology unclear 2. Hypertension 3. Hyperlipidemia 4. GERD 5. Chronic back pain Hospital Course: Patient was admitted to the hospital for evaluation of chest pain. Patient had serial cardiac enzymes which were negative. He underwent stress testing which showed a small fixed defect versus artifact. He had an echocardiogram which showed a normal LV function normal right ventricular function ejection fraction 60-65% with no valvular abnormalities. Patient had no further symptoms. His atenolol and lisinopril had been held that morning. Patient blood pressure is 149/87. He received atenolol and lisinopril at this time. He was deemed appropriate for discharge and arrangements were made for him to discharge home. Exam Vital Signs (past 8 hours): - 06/14/20 12:00 06/14/20 12:56 06/14/20 16:00 Temperature 98.6 F 98.9 F Pulse Rate 100 H 103 H Respiratory Rate 18 22 Blood Pressure 131/85 143/85 H Pulse Oximetry 100 97 06/14/20 17:23 Temperature Pulse Rate 99 H Respiratory Rate Blood Pressure 149/87 H Pulse Oximetry Oxygen Delivery Method Room Air Oxygen Flow Rate 0 Narrative Exam Narrative: Pleasant male in no acute distress Lungs: Clear to auscultation Cardiac exam: Regular rate and rhythm normal S1-S2 Abdomen: Soft nontender nondistended Objective Labs Result Diagrams: 06/14/20 04:45 06/14/20 04:45 Labs: Laboratory Results - last 24 hr 06/13/20 06/13/20 06/13/20 17:22 21:04 21:04 WBC RBC Hgb Hct MCV MCH MCHC RDW Plt Count Neut % (Auto) Lymph % (Auto) [place] % (Auto) Eos % (Auto) Baso % (Auto) Neut # (Auto) Lymph # (Auto) [place] # (Auto) Eos # (Auto) Baso # (Auto) Sodium Potassium Chloride Carbon Dioxide BUN Creatinine Estimated GFR BUN/Creatinine Ratio Glucose Calcium Magnesium 1.8 Total Bilirubin AST ALT Alkaline Phosphatase Total Creatine Kinase 66 CK-MB (CK-2) TNP CK-MB (CK-2) Rel Index TNP Troponin I < 0.012 Total Protein Albumin Globulin Albumin/Globulin Ratio Triglycerides Cholesterol LDL Cholesterol, Calc HDL Cholesterol Nasal Screen MRSA (PCR) U Opiates 300ng/mL cut Negative Ur Oxycodone Screen Negative Urine Methadone Screen Negative Ur Barbiturates Screen Negative U Tricyclic Antidepress Positive H Ur Phencyclidine Scrn Negative Ur Amphetamines Screen Negative U Methamphetamines Scrn Negative Ur MDMA Scrn (Ecstasy) Negative U Benzodiazepines Scrn Negative Urine Cocaine Screen Negative U Marijuana (THC) Screen Negative COVID-19 PCR 06/13/20 06/13/20 06/14/20 22:00 22:00 01:33 WBC RBC Hgb Hct MCV MCH MCHC RDW Plt Count Neut % (Auto) Lymph % (Auto) [place] % (Auto) Eos % (Auto) Baso % (Auto) Neut # (Auto) Lymph # (Auto) [place] # (Auto) Eos # (Auto) Baso # (Auto) Sodium Potassium Chloride Carbon Dioxide BUN Creatinine Estimated GFR BUN/Creatinine Ratio Glucose Calcium Magnesium Total Bilirubin AST ALT Alkaline Phosphatase Total Creatine Kinase CK-MB (CK-2) CK-MB (CK-2) Rel Index Troponin I Total Protein Albumin Globulin Albumin/Globulin Ratio Triglycerides Cholesterol LDL Cholesterol, Calc HDL Cholesterol Nasal Screen MRSA (PCR) Negative for mrsa U Opiates 300ng/mL cut Ur Oxycodone Screen Urine Methadone Screen Ur Barbiturates Screen U Tricyclic Antidepress Ur Phencyclidine Scrn Ur Amphetamines Screen U Methamphetamines Scrn Ur MDMA Scrn (Ecstasy) U Benzodiazepines Scrn Urine Cocaine Screen U Marijuana (THC) Screen COVID-19 PCR Cancelled Negative 06/14/20 06/14/20 06/14/20 04:45 04:45 04:45 WBC 6.7 RBC 4.54 Hgb 13.7 Hct 40.0 L MCV 88.1 MCH 30.2 MCHC 34.3 RDW 12.5 Plt Count 231 Neut % (Auto) 67.2 Lymph % (Auto) 20.1 L [place] % (Auto) 11.5 Eos % (Auto) 0.8 L Baso % (Auto) 0.4 Neut # (Auto) 4500 Lymph # (Auto) 1300 [place] # (Auto) 800 Eos # (Auto) 100 Baso # (Auto) 0 Sodium 131 L Potassium 3.8 Chloride 92 L Carbon Dioxide 33 H BUN 12 Creatinine 0.91 Estimated GFR > 60.0 BUN/Creatinine Ratio 13.2 Glucose 95 Calcium 9.6 Magnesium Total Bilirubin 0.8 AST 29 ALT 27 Alkaline Phosphatase 59 Total Creatine Kinase CK-MB (CK-2) CK-MB (CK-2) Rel Index Troponin I Total Protein 6.9 Albumin 4.4 Globulin 2.5 Albumin/Globulin Ratio 1.8 Triglycerides 71 Cholesterol 143 LDL Cholesterol, Calc 85 HDL Cholesterol 44 Nasal Screen MRSA (PCR) U Opiates 300ng/mL cut Ur Oxycodone Screen Urine Methadone Screen Ur Barbiturates Screen U Tricyclic Antidepress Ur Phencyclidine Scrn Ur Amphetamines Screen U Methamphetamines Scrn Ur MDMA Scrn (Ecstasy) U Benzodiazepines Scrn Urine Cocaine Screen U Marijuana (THC) Screen COVID-19 PCR Discharge Assessment & Plan Assessment and Plan Assessment: 1. Atypical chest pain 2. Hypertension 3. Hyperlipidemia 4. GERD Plan of Treatment: Discharge home Follow-up with Dr. Bentley next week Discharge Plan Discharge Plan Discharge Problem: Chest pain Patient Disposition: Home Discharge orders & Medications Prescriptions: Continued simvastatin 20 mg tablet 20 mg PO DAILY Qty: 90 RF: 3 oxycodone 10 mg tablet 10 mg PO DAILY PRN (Reason: pain) Qty: 60 RF: 0 cyclobenzaprine 10 mg tablet 10 mg PO BID Qty: 180 RF: 3 lisinopril-hydrochlorothiazide 20-25 mg tablet 1 tab PO QDAY Qty: 90 RF: 3 atenolol 50 mg tablet 25 mg PO QDAY RF: 0 Follow up/Referrals: Roland Bentley MD [Primary Care Provider] - Diet/Activity/Treatments Diet: Low-sodium and Low-cholesterol Activity: as tolerated Discharge Data Primary Care Provider: Roland Bentley Attending Provider: Georgia Street Admit Date/Time: 06/13/20 18:02 Quality VTE Deep Vein Thrombosis/Pulmonary Embolism Present on Admission: No
[2020-06-14] MEDS: lisinopriL 20 MG TABLET PO (17:43)
[2020-06-14] MEDS: atenoloL 25 MG TABLET PO (17:44)
--- NOTE | 2020-06-14 17:49 | CM.DPNOTE ---
Patient given discharge packet and IV/tele removed. Patient had no new meds and was advised to follow up with PCP. Patient had no concerns or questions. PAtient gathered his own belongings and was escorted out of hospital to his ride waiting for him.
[2020-06-15 02:10] LABS: COVID19 Sendout Not Detected (Not Detected)
== END 2020-06-14 17:52 | disposition home or self-care (01) ==
LOC: ED 17:08 → ICU 06-14 09:27 → AC 06-14 12:59
PROVIDERS: Nurse Practitioner Family; Admitting Provider Internal Medicine; Emergency Provider Emergency Medicine; PCP Student in an Organized Health Care Education/Training Program; Visit Provider Internal Medicine
DX: R07.9 Chest pain, unspecified (principal); Z11.59 Encounter for screening for other viral diseases; I10 Essential (primary) hypertension; E78.5 Hyperlipidemia, unspecified; I25.10 Atherosclerotic heart disease of native coronary artery without angina pectoris; K21.9 Gastro-esophageal reflux disease without esophagitis; G89.29 Other chronic pain; M54.9 Dorsalgia, unspecified
CPT/HCPCS: 36415; 71045; 78452; 80053; 80061; 80305; 82550; 83690; 83735; 84484; 85025; 85379; 85610; 85730; 87635; 87797; 93005; 93017; 93306; 96360; 96361; 99284; G0378; A9502; J2785

== ENCOUNTER → 2021-04-12 10:04 | Outpatient (CLI) | payer MEDICARE, SELFPAY ==
[2020-06-13 19:13] VITALS: BMI 25.8
[2021-04-12 11:22] LABS: Hemoglobin A1C% w Est Avg Glu 5.9 % (4.0-6.0)
[2021-04-12 11:29] LABS: Creatinine Urine Random 142.7 mg/dL
[2021-04-12 11:33] LABS: Microalbumi Creatinin Ratio Ur 16.1 ug/mg CR (<30); Microalbumin Urine Random 2.3 mg/dL (0-1.6)
[2021-04-12 11:40] LABS: Blood Urea Nitrogen 12 mg/dL (9-20); Calcium 9.9 mg/dL (8.4-10.2); Carbon Dioxide 29 mmol/L (22-32); Chloride 98 mmol/L (98-107); Cholesterol 176 mg/dL (140-199); Estimated Glomerular Filt Rate > 60.0 mL/min (>60); Glucose 115 mg/dL (80-110); HDL Cholesterol 57 mg/dL (40-60); HEMOLYSIS < 15 (0-50); LDL Cholesterol Calculated 90 mg/dL (<100); Potassium 4.6 mmol/L (3.4-5.1); Sodium 135 mmol/L (137-145); Triglycerides 147 mg/dL (35-150); Uric Acid 5.7 mg/dL (3.5-8.5)
[2021-04-12 12:03] LABS: TSH w/ Reflex to FT4 1.07 uIU/mL (0.47-4.68)
[2021-04-12 12:07] LABS: Prostate Specific Antigen Scrn 2.63 ng/mL (0.1-4.0)
== END ==
PROVIDERS: PCP Student in an Organized Health Care Education/Training Program; Referring Provider Student in an Organized Health Care Education/Training Program; Visit Provider Student in an Organized Health Care Education/Training Program
DX: R73.9 Hyperglycemia, unspecified (principal); E78.2 Mixed hyperlipidemia; Z12.5 Encounter for screening for malignant neoplasm of prostate; R09.89 Other specified symptoms and signs involving the circulatory and respiratory systems
CPT/HCPCS: 36415; 80048; 80061; 82043; 82570; 83036; 84443; 84550; G0103

== ENCOUNTER → 2021-09-30 12:34 | Outpatient (CLI) | payer MEDICARE, SELFPAY ==
[2020-06-13 19:13] VITALS: BMI 25.8
--- NOTE | 2021-09-30 12:40 | DI.MRI.S_ITS ---
PROCEDURE: MR LUMBAR SPINE WO CON INDICATIONS: post laminectiomy syndrome synovid cyst TECHNIQUE: Noncontrast sagittal T1 spin echo and T2 fast echo, sagittal STIR, axial T1 and T2 fast spin echo through the lumbar spine. In cases with scoliosis, additional coronal T2 fast spin echo may be performed. COMPARISON: None. FINDINGS: Image quality: Excellent. Alignment and Curvature: No plain films are available for comparison, for numbering purposes. Thus, for the purposes of this examination, 5 lumbar type vertebral bodies will be presumed, as denoted on the montage panel. This should be confirmed and correlated with plain films, prior to any lumbar spinal intervention. There is mild grade 1 anterolisthesis of L4 on L5. Bone Marrow: Marrow is of normal overall signal. No acute vertebral body compression fractures. Mild reactive signal within the endplates adjacent to the L4-L5 intervertebral disc. Posterior fusion at L3-L5. L4-L5 pars interarticularis defects bilaterally. Spinal Cord: Conus medullaris terminates at the mid L1 level. Visualized cord demonstrates normal signal and size. Paraspinous Soft Tissues: No paravertebral masses. T12-L1: Mild disc height loss and desiccation. No significant canal, or foraminal stenosis. L1-L2: Mild disc height loss and desiccation. Mild diffuse disc bulge. Mild epidural lipomatosis. Mild canal stenosis. Mild bilateral foraminal stenosis. L2-L3: Mild disc desiccation and diffuse disc bulge. Mild facet and ligamentum flavum hypertrophy. Mild epidural lipomatosis. Mild canal stenosis. Moderate bilateral foraminal stenosis. L3-L4: Mild disc desiccation and diffuse disc bulge. Mild bilateral facet hypertrophy. Posterior fusion. Mild canal stenosis at the L3-L4 level. Moderate bilateral foraminal stenosis. At the mid L4 level, there is severe canal stenosis, predominantly secondary to ligamentum flavum hypertrophy, and posterior fusion mass. L4-L5: Moderate disc height loss and desiccation. Mild diffuse disc bulge. Moderate bilateral facet hypertrophy. Moderate canal stenosis. Severe bilateral foraminal stenosis. Bilateral L4 nerve root compression. L5-S1: Mild disc height loss and desiccation. Mild diffuse disc bulge. Mild bilateral facet hypertrophy. Mild canal stenosis. Mild bilateral foraminal stenosis. IMPRESSION: 1. Postsurgical sequelae. 2. Grade 1 isthmic spondylolisthesis at L4-L5. 3. Multilevel degenerative disc and facet disease, as well as ligamentum flavum hypertrophy and epidural lipomatosis. 4. Severe canal stenosis at the mid L4 level as described above. 5. Multilevel foraminal stenoses, worst at L4-L5 where there is associated intraforaminal nerve root compression. Dictated by: Mirna Kang M.D. on 10/02/2021 at 11:38 Approved by: Mirna Kang M.D. on 10/02/2021 at 11:42
== END ==
PROVIDERS: PCP Student in an Organized Health Care Education/Training Program; Referring Provider Student in an Organized Health Care Education/Training Program; Visit Provider Student in an Organized Health Care Education/Training Program
DX: M96.1 Postlaminectomy syndrome, not elsewhere classified (principal); M43.16 Spondylolisthesis, lumbar region; M51.36 Other intervertebral disc degeneration, lumbar region; M51.37 Other intervertebral disc degeneration, lumbosacral region; M48.061 Spinal stenosis, lumbar region without neurogenic claudication; M48.07 Spinal stenosis, lumbosacral region
CPT/HCPCS: 72148

== ENCOUNTER → 2021-10-07 11:09 | Outpatient (CLI) | payer MEDICARE, SELFPAY ==
[2020-06-13 19:13] VITALS: BMI 25.8
--- NOTE | 2021-10-07 | DI.MRI.S_ITS ---
PROCEDURE: MR THORACIC SPINE WO CON INDICATIONS: Postlaminectomy syndrome, not elsewhere classified TECHNIQUE: Noncontrast sagittal T1 spine echo and T2 fast spin echo, sagittal STIR, axial T1 and T2 fast spin echo through the thoracic spine. COMPARISON: [facility], MR, MR LUMBAR SPINE WO CON, 09/30/2021, 13:02. FINDINGS: Image quality: Excellent. Alignment and Curvature: There is normal bony alignment. Bone Marrow: Marrow is of normal overall signal. No acute vertebral body compression fractures. Spinal Cord: There is a relatively central cord syrinx extending from T5-T6 to the level of T8-T9. Its maximum diameter is 3 mm. Paraspinous Soft Tissues: No paravertebral masses. Miscellaneous: On axial images, central canal and foramina appear widely patent at all scanned levels. IMPRESSION: 1. There is a thoracic cord syrinx extending from T5-T6 through T8-T9. 2. No canal stenosis or foraminal stenosis. Comment: Recommend thoracic spine MRI with without contrast to exclude a neoplastic cord lesion. Dictated by: Chuck Wang M.D. on 10/08/2021 at 15:48 Approved by: Chuck Wang M.D. on 10/08/2021 at 15:54
== END ==
PROVIDERS: PCP Student in an Organized Health Care Education/Training Program; Referring Provider Student in an Organized Health Care Education/Training Program; Visit Provider Student in an Organized Health Care Education/Training Program
DX: M96.1 Postlaminectomy syndrome, not elsewhere classified (principal)
CPT/HCPCS: 72146

== ENCOUNTER → 2022-06-14 13:42 | Outpatient (CLI) | payer MEDICARE, SELFPAY ==
[2020-06-13 19:13] VITALS: BMI 25.8
[2022-06-14 15:43] LABS: Alanine Aminotransferase 48 IU/L (<50); Albumin 4.5 g/dL (3.5-5.0); Albumin Globulin Ratio 1.6 (1.0-2.8); Alkaline Phosphatase 77 U/L (38-126); Aspartate Aminotransferase 42 IU/L (17-59); BUN Creatinine Ratio 15.8 (6-22); Bilirubin Total 0.4 mg/dL (0.2-1.3); Blood Urea Nitrogen 16 mg/dL (9-20); Calcium 9.2 mg/dL (8.4-10.2); Carbon Dioxide 31 mmol/L (22-32); Chloride 98 mmol/L (98-107); Cholesterol 176 mg/dL (140-199); Estimated Glomerular Filt Rate > 60 mL/min (>60); Globulin 2.9 g/dL (1.7-4.1); Glucose 107 mg/dL (80-110); HDL Cholesterol 44 mg/dL (40-60); HEMOLYSIS < 15 (0-50); LDL Cholesterol Calculated 78 mg/dL (<100); Potassium 4.5 mmol/L (3.4-5.1); Sodium 137 mmol/L (137-145); Total Protein 7.4 g/dL (6.3-8.2); Triglycerides 270 mg/dL (35-150)
[2022-06-14 16:20] LABS: Prostate Specific Antigen Scrn 1.59 ng/mL (0.1-4.0)
[2022-06-14 22:00] LABS: Hep C Virus Ab w/Reflex Quant NEGATIVE s/c (NEGATIVE)
== END ==
PROVIDERS: PCP Student in an Organized Health Care Education/Training Program; Referring Provider Student in an Organized Health Care Education/Training Program; Visit Provider Student in an Organized Health Care Education/Training Program
DX: R73.03 Prediabetes (principal); E78.2 Mixed hyperlipidemia; Z12.5 Encounter for screening for malignant neoplasm of prostate; M1A.0790 Idiopathic chronic gout, unspecified ankle and foot, without tophus (tophi); Z11.59 Encounter for screening for other viral diseases; Z91.89 Other specified personal risk factors, not elsewhere classified; R09.89 Other specified symptoms and signs involving the circulatory and respiratory systems; Z79.899 Other long term (current) drug therapy
CPT/HCPCS: 36415; 80053; 80061; 83036; 84550; 86803; G0103

== ENCOUNTER → 2023-04-22 11:48 | Outpatient (CLI) | payer MEDICARE, SELFPAY ==
[2020-06-13 19:13] VITALS: BMI 25.8
[2023-04-22 14:10] LABS: Add Manual Diff / Slide Review NO; Basophils Absolute Auto 0 /uL (0-100); Basophils Percent Auto 0.3 % (0-2); Eosinophils Absolute Auto 0 /uL (0-450); Eosinophils Percent Auto 0.4 % (2-4); Hematocrit 41.4 % (41-53); Hemoglobin 14.4 g/dL (13.5-17.5); Lymphocytes Absolute Auto 1300 /uL (1100-4500); Lymphocytes Percent Auto 20.3 % (25-40); Mean Corpuscular HGB Conc 34.8 % (30-36); Mean Corpuscular Hemoglobin 30.4 PG (26-34); Mean Corpuscular Volume 87.3 fL (80-100); Monocytes Absolute Auto 600 /uL (0-900); Monocytes Percent Auto 8.6 % (3-14); Neutrophils Absolute Auto 4600 /uL (1500-7000); Neutrophils Percent Auto 70.4 % (50-75); Platelet Count 270 X10^3/uL (150-400); Red Blood Cell Count 4.74 X10^6/uL (4.5-5.9); White Blood Cell Count 6.6 X10^3/uL (4.5-11.0)
[2023-04-22 14:42] LABS: Alanine Aminotransferase 55 IU/L (<50); Albumin 4.7 g/dL (3.5-5.0); Albumin Globulin Ratio 1.7 (1.0-2.8); Alkaline Phosphatase 71 U/L (38-126); Aspartate Aminotransferase 39 IU/L (17-59); BUN Creatinine Ratio 9.6 (6-22); Bilirubin Total 0.4 mg/dL (0.2-1.3); Blood Urea Nitrogen 9 mg/dL (9-20); Calcium 9.4 mg/dL (8.4-10.2); Carbon Dioxide 33 mmol/L (22-32); Chloride 95 mmol/L (98-107); Cholesterol 180 mg/dL (140-199); Estimated Glomerular Filt Rate > 60 mL/min (>60); Globulin 2.8 g/dL (1.7-4.1); Glucose 110 mg/dL (80-110); HDL Cholesterol 49 mg/dL (40-60); HEMOLYSIS < 15 (0-50); LDL Cholesterol Calculated 96 mg/dL (<100); Potassium 4.3 mmol/L (3.4-5.1); Sodium 135 mmol/L (137-145); Total Protein 7.5 g/dL (6.3-8.2); Triglycerides 174 mg/dL (35-150); Uric Acid 6.7 mg/dL (3.5-8.5)
[2023-04-22 15:12] LABS: Prostate Specific Antigen Scrn 1.73 ng/mL (0.1-4.0)
[2023-04-22 15:27] LABS: TSH w/ Reflex to FT4 1.01 uIU/mL (0.47-4.68)
[2023-04-22 17:23] LABS: Appearance Urine UA CLEAR; Bilirubin Urine UA NEGATIVE (NEGATIVE); Color Urine UA YELLOW; Glucose Urine UA NEGATIVE (Negative); Ketones Urine UA NEGATIVE (NEGATIVE); Leukocyte Esterase Urine UA NEGATIVE (NEGATIVE); Nitrite Urine UA NEGATIVE (Negative); Occult Blood Urine UA NEGATIVE (Negative); Protein Urine UA NEGATIVE (Negative); Urobilinogen Urine UA 0.2 E.U./dL (0.2); pH Urine UA 7.5 (4.5-8.0)
[2023-04-22 17:31] LABS: Bacteria Urine None Seen; Culture Indicated Urine Cult Not Indicated; RBC Urine 0-1/HPF (0-5/HPF); Squamous Epithelial Cell Urine None Seen (0-5/HPF); WBC Urine 0-1/HPF (0-5/HPF)
[2023-04-23 05:12] LABS: Labcorp Hemoglobin (Hb) A1c 6.1 % (4.8-5.6)
== END ==
PROVIDERS: PCP Pediatrics; Referring Provider Pediatrics; Visit Provider Pediatrics
DX: E78.2 Mixed hyperlipidemia (principal); Z12.5 Encounter for screening for malignant neoplasm of prostate; F11.20 Opioid dependence, uncomplicated; M10.9 Gout, unspecified; M43.06 Spondylolysis, lumbar region; M54.16 Radiculopathy, lumbar region; R09.89 Other specified symptoms and signs involving the circulatory and respiratory systems; R73.03 Prediabetes
CPT/HCPCS: 36415; 80053; 80061; 81001; 83036; 84443; 84550; 85025; G0103

== ENCOUNTER 2023-07-23 12:07 | Emergency (ER) | payer MEDICARE, SELFPAY ==
[2020-06-13 19:13] VITALS: BMI 25.8
[2023-07-23 12:10] VITALS: BP 187/89; PULSE 81; RESP 18; TEMP 36.9; O2SAT 99; BMI 27.6
--- NOTE | 2023-07-23 12:19 | DI.RAD.S_ITS ---
PROCEDURE: XR CHEST 1V INDICATIONS: chest pain TECHNIQUE: One view of the chest was acquired. COMPARISON: [facility], CR, XR CHEST 1V, 06/13/2020, 14:00. FINDINGS: Surgical changes and devices: None. Lungs and pleura: Lungs are clear. No pleural effusions or pneumothorax. Mediastinum: Mediastinal contours appear normal. Heart size is normal. Bones and chest wall: No suspicious bony lesions. Overlying soft tissues appear unremarkable. IMPRESSION: Portable chest within normal limits for age. Dictated by: Georgiana Gonzalez M.D. on 07/23/2023 at 13:20 Approved by: Georgiana Gonzalez M.D. on 07/23/2023 at 13:21
--- NOTE | 2023-07-23 12:28 | PC.NURSE ---
Informed pt that we are unable to see EKG from providers office and would like to take one here. Pt refuses. States I can't pay for all that. Trying to get copy from PCP office.
[2023-07-23 12:59] LABS: Add Manual Diff / Slide Review NO; Basophils Absolute Auto 0 /uL (0-100); Basophils Percent Auto 0.4 % (0-2); Eosinophils Absolute Auto 0 /uL (0-450); Eosinophils Percent Auto 0.2 % (2-4); Hematocrit 41.2 % (41-53); Hemoglobin 14.3 g/dL (13.5-17.5); Lymphocytes Absolute Auto 1000 /uL (1100-4500); Lymphocytes Percent Auto 11.9 % (25-40); Mean Corpuscular HGB Conc 34.6 % (30-36); Mean Corpuscular Hemoglobin 30.4 PG (26-34); Mean Corpuscular Volume 87.8 fL (80-100); Monocytes Absolute Auto 600 /uL (0-900); Monocytes Percent Auto 6.8 % (3-14); Neutrophils Absolute Auto 6700 /uL (1500-7000); Neutrophils Percent Auto 80.7 % (50-75); Platelet Count 316 X10^3/uL (150-400); Red Blood Cell Count 4.69 X10^6/uL (4.5-5.9); Red Cell Distribution Width 12.5 % (11.6-14.8); White Blood Cell Count 8.3 X10^3/uL (4.5-11.0)
[2023-07-23 13:04] LABS: Prothrombin Time 11.2 SECONDS (10.1-12.7)
[2023-07-23 13:07] LABS: PTT Partial Thromboplastin Tim 33 SECONDS (26-36)
[2023-07-23 13:09] LABS: Alanine Aminotransferase 40 IU/L (<50); Albumin 4.7 g/dL (3.5-5.0); Albumin Globulin Ratio 1.6 (1.0-2.8); Alkaline Phosphatase 75 U/L (38-126); Aspartate Aminotransferase 30 IU/L (17-59); BUN Creatinine Ratio 18.6 (6-22); Bilirubin Total 0.3 mg/dL (0.2-1.3); Blood Urea Nitrogen 16 mg/dL (9-20); Calcium 9.7 mg/dL (8.4-10.2); Carbon Dioxide 29 mmol/L (22-32); Chloride 93 mmol/L (98-107); Creatine Kinase 64 U/L (55-170); Estimated Glomerular Filt Rate > 60 mL/min (>60); Globulin 2.9 g/dL (1.7-4.1); Glucose 118 mg/dL (80-110); HEMOLYSIS < 15 (0-50); Lipase 66 U/L (23-300); Magnesium 1.6 mg/dL (1.6-2.3); Potassium 4.1 mmol/L (3.4-5.1); Sodium 131 mmol/L (137-145); Total Protein 7.6 g/dL (6.3-8.2)
[2023-07-23 13:20] LABS: Troponin I < 0.012 ng/mL (0.01-0.034)
[2023-07-23 14:32] VITALS: BP 206/99; PULSE 92; O2SAT 99
[2023-07-23 14:41] VITALS: PULSE 85; RESP 28; O2SAT 100
[2023-07-23 14:43] VITALS: BP 187/84; PULSE 88; RESP 25; O2SAT 100
[2023-07-23 15:00] VITALS: BP 175/81; PULSE 74; RESP 15; O2SAT 99
[2023-07-23 15:30] VITALS: BP 164/76; PULSE 70; RESP 15; O2SAT 98
--- NOTE | 2023-07-23 15:34 | ED_ITS ---
HPI - Chest Pain General Chief Complaint: Chest Pain Stated Complaint: high bp dizzy chest issues Time Seen by Provider: 07/23/23 14:37 Source: patient Mode of arrival: Ambulatory Limitations: no limitations History of Present Illness HPI narrative: Patient is a 63-year-old male history of hypertension, coronary artery disease, GERD, lumbar stenosis with chronic radiculopathy, presenting today from PCP office with hypertension. Patient reports that he checks his blood pressure multiple times a day in his blood pressure varies quite a bit. It is pretty regularly high in the 200s however sometimes it drops whenever he eats so that his blood pressure is low. He is not passed out. He has chronic acid reflux which seems to be controlled on 40 mg of omeprazole. However he does not wheeze like taking it whenever he goes off he notices that it flares. He feels like it is mildly flared now but he took some omeprazole this morning. He denies any abdominal pain though he thought the cherries he ate this summer maybe inflamed his pancreas. No vomiting. His blood pressure initially was elevated when he arrived however it has come down significantly without any intervention. He is not short of breath he has no new symptoms. He reports that sometimes he just lays in bed waiting for his blood pressure to come down. He says sometimes he can tell that his blood pressure is high because he has heart palpitations but not all the time. He apparently is on Related Data Previous Rx's Medication Instructions Recorded colchicine (gout) 0.6 mg tablet 0.6 mg PO DAILY #6 tabs 07/28/20 labetalol 200 mg tablet 200 mg PO DAILY PRN Systolic BP 04/12/21 >170 #30 tabs clindamycin phosphate 1 % topical 1 applic topical DAILY #60 mL 06/14/22 solution allopurinol 100 mg tablet 100 mg PO DAILY #90 tabs 06/18/23 atenolol 50 mg tablet 125 mg PO DAILY #225 tabs 06/18/23 cyclobenzaprine 10 mg tablet 10 mg PO BID #180 tabs 06/18/23 lisinopril 20 1 tab PO DAILY #90 tabs 06/18/23 mg-hydrochlorothiazide 25 mg tablet omeprazole 40 mg capsule,delayed 40 mg PO DAILY #90 caps 06/18/23 release simvastatin 10 mg tablet 15 mg PO DAILY #135 tabs 08/15/23 oxycodone 10 mg tablet 20 mg PO Q8H PRN pain #180 tabs 07/18/23 Allergies Allergy/AdvReac Type Severity Reaction Status Date / Time tetracycline Allergy Mild head Verified 07/23/23 10:35 turned bright red and got very hot aspirin [ASPIRIN] Allergy Unknown Verified 07/23/23 10:35 Penicillins [PENICILLINS] Allergy Unknown Verified 07/23/23 10:35 gabapentin AdvReac Intermediate Fatigued Verified 07/23/23 10:35 Review of Systems Review of Systems ROS Unobtainable: All systems reviewed & are unremarkable except as noted in HPI and below Patient History Medical History (Updated 07/23/23 @ 16:15 by Chitra Gordon DO) Heart valve disease Hx of myocardial infarction Labile hypertension Surgical History History of repair of hiatal hernia Status post laparoscopic cholecystectomy (11/28/99) Family History Father Age: 92 Essential hypertension Mother Age: 90 Malignant neoplasm of urinary bladder, unspecified site Kidney malignancy, unspecified laterality Essential hypertension Hyperlipidemia Cerebrovascular accident (CVA), unspecified mechanism Social History household members: none Smoking Status: Never smoker Smokeless tobacco user: chewing tobacco alcohol intake: current Smoking Status: Never smoker alcohol intake frequency: holidays/special occasions only Substance Use Type: does not use Exam Initial Vital Signs Initial Vital Signs: Vital Signs Temperature 98.4 F 07/23/23 12:10 Pulse Rate 81 07/23/23 12:10 Respiratory Rate 18 07/23/23 12:10 Blood Pressure 187/89 H 07/23/23 12:10 Pulse Oximetry 99 07/23/23 12:10 Oxygen Delivery Method Room Air 07/23/23 12:10 GENERAL: Alert 63-year-old male and in no acute distress. HEENT: Head atraumatic,EOMI, pupils reactive, face symmetric, moist mucous membranes CARDIOVASCULAR: Regular rate and rhythm without murmurs, rubs or gallops. RESPIRATORY: Breath sounds equal bilaterally, no wheezes rales or rhonchi. ABDOMEN: Soft, nontender. Normoactive bowel sounds all 4 quadrants. No guarding or rebound. No right upper quadrant pain EXTREMITIES: Normal range of motion, no clubbing or edema. Neurovascularly intact NEUROLOGICAL: Alert and oriented x4. SKIN: Warm, dry, no laceration, no petechiae, no rashes or lesions. Course Orders Ordered: ED Orders 07/23/23 12:19 XR chest 1V Stat 07/23/23 12:46 Complete Blood Count AUTO DIFF Stat Comprehensive Metabolic Panel Stat Lipase Stat Magnesium Stat PTT Partial Thromboplastin [place] Stat Prothrombin Time INR Stat Troponin & CK Cardiac Panel Stat 07/23/23 16:23 EKG-12 Lead Routine Vital Signs Vital signs: Vital Signs - 8 hr 07/23/23 12:10 07/23/23 14:32 07/23/23 14:41 Temperature 98.4 F Pulse Rate 81 92 H 85 Respiratory Rate 18 28 H Blood Pressure 187/89 H 206/99 H Pulse Oximetry 99 99 100 Oxygen Delivery Method Room Air Room Air 07/23/23 14:43 07/23/23 14:43 07/23/23 15:00 Temperature Pulse Rate 88 Respiratory Rate 25 H Blood Pressure 187/84 H 175/81 H Pulse Oximetry 100 Oxygen Delivery Method 07/23/23 15:00 07/23/23 15:30 07/23/23 15:30 Temperature Pulse Rate 74 70 Respiratory Rate 15 15 Blood Pressure 164/76 H Pulse Oximetry 99 98 Oxygen Delivery Method MDM - Chest Pain Lab Data 07/23/23 12:46 07/23/23 12:46 Labs: Lab Results 07/23/23 07/23/23 07/23/23 Range/Units 12:46 12:46 12:46 WBC 8.3 (4.5-11.0) X10^3/uL RBC 4.69 (4.5-5.9) X10^6/uL Hgb 14.3 (13.5-17.5) g/dL Hct 41.2 (41-53) % MCV 87.8 (80-100) fL MCH 30.4 (26-34) PG MCHC 34.6 (30-36) % RDW 12.5 (11.6-14.8) % Plt Count 316 (150-400) X10^3/uL Neut % (Auto) 80.7 H (50-75) % Lymph % (Auto) 11.9 L (25-40) % [place] % (Auto) 6.8 (3-14) % Eos % (Auto) 0.2 L (2-4) % Baso % (Auto) 0.4 (0-2) % Neut # (Auto) 6700 (5469-6447) /uL Lymph # (Auto) 1000 L (5390-3739) /uL [place] # (Auto) 600 (0-900) /uL Eos # (Auto) 0 (0-450) /uL Baso # (Auto) 0 (0-100) /uL PT 11.2 (10.1-12.7) SECONDS INR 1.0 (0.9-1.3) APTT 33 (26-36) SECONDS Sodium 131 L (137-145) mmol/L Potassium 4.1 (3.4-5.1) mmol/L Chloride 93 L (98-107) mmol/L Carbon Dioxide 29 (22-32) mmol/L BUN 16 (9-20) mg/dL Creatinine 0.86 (0.66-1.25) mg/dL Estimated GFR > 60 (>60) mL/min BUN/Creatinine Ratio 18.6 (6-22) Glucose 118 H (80-110) mg/dL Calcium 9.7 (8.4-10.2) mg/dL Magnesium 1.6 (1.6-2.3) mg/dL Total Bilirubin 0.3 (0.2-1.3) mg/dL AST 30 (17-59) IU/L ALT 40 (<50) IU/L Alkaline Phosphatase 75 (38-126) U/L Total Creatine Kinase 64 (55-170) U/L Troponin I < 0.012 (0.01-0.034) ng/mL Total Protein 7.6 (6.3-8.2) g/dL Albumin 4.7 (3.5-5.0) g/dL Globulin 2.9 (1.7-4.1) g/dL Albumin/Globulin Ratio 1.6 (1.0-2.8) Lipase 66 (23-300) U/L Imaging Data Chest x-ray: Radiologist's Impression: PROCEDURE:? XR CHEST 1V ? INDICATIONS:? chest pain ? TECHNIQUE:? One view of the chest was acquired.? ? COMPARISON:? [facility], , XR CHEST 1V, 06/13/2020, 14:00. ? FINDINGS:? ? Surgical changes and devices:? None.? ? Lungs and pleura:? Lungs are clear.? No pleural effusions or pneumothorax.? ? Mediastinum:? Mediastinal contours appear normal.? Heart size is normal.? ? Bones and chest wall:? No suspicious bony lesions.? Overlying soft tissues appear unremarkable.? ? ? IMPRESSION:? Portable chest within normal limits for age. ? ? Dictated by: Georgiana Gonzalez M.D. on 07/23/2023 at 13:20 ? ? Approved by: Georgiana Gonzalez M.D. on 07/23/2023 at 13:21 ? ECG Data Interpretation: Sinus rhythm rate 73 CT interval 164 QRS [address] changes no T-wave inversions similar to EKG done at clinic MDM Narrative Medical decision making narrative: Patient is a 63-year-old male history of hypertension hyperlipidemia GERD presenting today some PCP with elevated blood pressure. Maybe was having some a bdominal pain but now not having any abdominal pain has symptoms of guarding acid reflux chronic ongoing seem to be controlled with omeprazole. He initially refused an EKG despite nursing encouragement he did have an EKG today at the office which is sent with him. No obvious changes. Blood work has been reviewed without significant abnormalities. Negative troponin. No evidence of end-organ damage. Blood pressure has come down without any sort of intervention. He has a wrist cuff on him it seems to correlate. She rapidly stated to his pain his pain not being controlled or combination. Patient does finally agree to an EKG before discharge and shows no change. Discharge Plan Departure Patient Disposition: Home Clinical Impression: Hypertension Instructions: High Blood Pressure Activity Restrictions/Additional Instructions: *You have been diagnosed with hypertension *What to do: At this time please check your blood pressure 1 to 2 times a day and follow up with your primary care provider. Please monitor your symptoms such as chest pain shortness of breath abdominal pain headache we your chronic back pain. These things may be helpful to write down when you take your blood pressure. *Continue to take medications as directed Omeprazole 20-40 mg once a day *Follow up with your primary care provider in 2-3 days or call [phone] *Return to ER if you should have blood pressure greater than 200/110 her longer than 6 hours OR having chest pain headache shortness of breath palpitations or any new, worsening or concerning symptoms Prescriptions: No Action colchicine (gout) 0.6 mg tablet 0.6 mg PO DAILY Qty: 6 11RF Rx Instructions: 2 tabs with first sign of flare, 1 tab one hour later. No more than 3 tabs in 24 hrs cyclobenzaprine 10 mg tablet 10 mg PO BID Qty: 180 1RF allopurinol 100 mg tablet 100 mg PO DAILY Qty: 90 1RF Hold Instructions: Not taking since 2020, lab pending simvastatin 10 mg tablet 15 mg PO DAILY Qty: 135 1RF omeprazole 40 mg capsule,delayed release(DR/EC) 40 mg PO DAILY Qty: 90 1RF lisinopril-hydrochlorothiazide 20-25 mg tablet 1 tab PO DAILY Qty: 90 1RF atenolol 50 mg tablet 125 mg PO DAILY Qty: 225 1RF oxycodone 10 mg tablet 20 mg PO Q8H PRN (Reason: pain) Qty: 180 0RF labetalol 200 mg tablet 200 mg PO DAILY PRN (Reason: Systolic BP >170) Qty: 30 11RF clindamycin phosphate 1 % solution 1 applic topical DAILY Qty: 60 11RF Referrals: Jonathan Robin MD [Primary Care Provider] - Stand Alone Forms: Patient Portal/API
== END 2023-07-23 16:31 | disposition home or self-care (01) ==
PROVIDERS: Emergency Provider Emergency Medicine; PCP Pediatrics
DX: I10 Essential (primary) hypertension (principal); R07.9 Chest pain, unspecified; Z79.899 Other long term (current) drug therapy
CPT/HCPCS: 36415; 71045; 80053; 82550; 83690; 83735; 84484; 85025; 85610; 85730; 93005; 99283; 99284

== ENCOUNTER → 2023-12-05 12:09 | Outpatient (CLI) | payer MEDICARE, SELFPAY ==
[2020-06-13 19:13] VITALS: BMI 25.8
[2023-12-05 12:56] LABS: Hemoglobin A1C% w Est Avg Glu 5.9 % (4.0-6.0)
[2023-12-05 13:03] LABS: Cholesterol 175 mg/dL (140-199); HDL Cholesterol 43 mg/dL (40-60); LDL Cholesterol Calculated 86 mg/dL (<100); Triglycerides 231 mg/dL (35-150)
[2023-12-05 13:04] LABS: Alanine Aminotransferase 34 IU/L (<50); Albumin 4.7 g/dL (3.5-5.0); Albumin Globulin Ratio 1.6 (1.0-2.8); Alkaline Phosphatase 59 U/L (38-126); Aspartate Aminotransferase 30 IU/L (17-59); BUN Creatinine Ratio 15.7 (6-22); Bilirubin Total 0.6 mg/dL (0.2-1.3); Blood Urea Nitrogen 14 mg/dL (9-20); Calcium 9.6 mg/dL (8.4-10.2); Carbon Dioxide 32 mmol/L (22-32); Chloride 94 mmol/L (98-107); Estimated Glomerular Filt Rate > 60 mL/min (>60); Glucose 98 mg/dL (80-110); HEMOLYSIS < 15 (0-50); Potassium 4.2 mmol/L (3.4-5.1); Sodium 133 mmol/L (137-145); Total Protein 7.7 g/dL (6.3-8.2); Uric Acid 5.6 mg/dL (3.5-8.5)
== END ==
PROVIDERS: PCP Family Medicine; Referring Provider Family Medicine; Visit Provider Family Medicine
DX: R73.03 Prediabetes (principal); E78.2 Mixed hyperlipidemia; M10.9 Gout, unspecified; R09.89 Other specified symptoms and signs involving the circulatory and respiratory systems; I1A.0 Resistant hypertension
CPT/HCPCS: 36415; 80053; 80061; 83036; 84550

== ENCOUNTER → 2025-03-02 16:11 | Outpatient (CLI) | payer MEDICARE, SELFPAY ==
[2020-06-13 19:13] VITALS: BMI 25.8
[2025-03-02 17:09] LABS: Add Manual Diff / Slide Review NO; Basophils Absolute Auto 0 /uL (0-100); Basophils Percent Auto 0.3 % (0-2); Eosinophils Absolute Auto 100 /uL (0-450); Eosinophils Percent Auto 0.7 % (2-4); Hematocrit 37.8 % (41-53); Hemoglobin 13.1 g/dL (13.5-17.5); Lymphocytes Absolute Auto 2200 /uL (1100-4500); Lymphocytes Percent Auto 24.6 % (25-40); Mean Corpuscular HGB Conc 34.6 % (30-36); Mean Corpuscular Hemoglobin 30.3 PG (26-34); Mean Corpuscular Volume 87.5 fL (80-100); Monocytes Absolute Auto 700 /uL (0-900); Monocytes Percent Auto 8.1 % (3-14); Neutrophils Absolute Auto 6000 /uL (1500-7000); Neutrophils Percent Auto 66.3 % (50-75); Platelet Count 284 X10^3/uL (150-400); Red Blood Cell Count 4.32 X10^6/uL (4.5-5.9); Red Cell Distribution Width 13.1 % (11.6-14.8); White Blood Cell Count 9.1 X10^3/uL (4.5-11.0)
[2025-03-02 17:14] LABS: Hemoglobin A1C% w Est Avg Glu 5.6 % (4.0-6.0)
[2025-03-02 17:44] LABS: Appearance Urine UA CLEAR; Bilirubin Urine UA NEGATIVE (NEGATIVE); Color Urine UA YELLOW; Glucose Urine UA NEGATIVE (Negative); Ketones Urine UA NEGATIVE (NEGATIVE); Leukocyte Esterase Urine UA NEGATIVE (NEGATIVE); Nitrite Urine UA NEGATIVE (Negative); Occult Blood Urine UA NEGATIVE (Negative); Protein Urine UA NEGATIVE (Negative); Specific Gravity Urine UA <=1.005 (1.000-1.035); Urobilinogen Urine UA 0.2 E.U./dL (0.2); pH Urine UA 5.5 (4.5-8.0)
[2025-03-02 17:51] LABS: Bacteria Urine Occasional (0-1); RBC Urine None Seen (0-5/HPF); Squamous Epithelial Cell Urine 0-1 /HPF (0-5/HPF); Urine Volume 10mL (spun); WBC Urine 0-1/HPF (0-5/HPF)
[2025-03-02 17:52] LABS: Culture Indicated Urine Cult Not Indicated
[2025-03-02 17:54] LABS: Alanine Aminotransferase 41 IU/L (<50); Albumin 4.9 g/dL (3.5-5.0); Albumin Globulin Ratio 2.3 (1.0-2.8); Alkaline Phosphatase 72 U/L (38-126); Aspartate Aminotransferase 36 IU/L (17-59); BUN Creatinine Ratio 16.5 (6-22); Bilirubin Total 0.5 mg/dL (0.2-1.3); Blood Urea Nitrogen 15 mg/dL (9-20); Calcium 9.7 mg/dL (8.4-10.2); Carbon Dioxide 29 mmol/L (22-32); Chloride 91 mmol/L (98-107); Cholesterol 153 mg/dL (140-199); Creatine Kinase 77 U/L (55-170); Estimated Glomerular Filt Rate > 60 mL/min (>60); Globulin 2.1 g/dL (1.7-4.1); Glucose 104 mg/dL (70-99); HDL Cholesterol 44 mg/dL (40-60); HEMOLYSIS < 15 (0-50); LDL Cholesterol Calculated 76 mg/dL (<100); Potassium 4.1 mmol/L (3.4-5.1); Sodium 130 mmol/L (137-145); Triglycerides 167 mg/dL (35-150)
== END ==
PROVIDERS: PCP Family Medicine; Referring Provider Family Medicine; Visit Provider Family Medicine
DX: M79.10 Myalgia, unspecified site (principal); R73.03 Prediabetes; I10 Essential (primary) hypertension; R09.89 Other specified symptoms and signs involving the circulatory and respiratory systems; E78.2 Mixed hyperlipidemia
CPT/HCPCS: 36415; 80053; 80061; 81001; 82550; 83036; 85025

== ENCOUNTER → 2025-04-28 16:21 | Outpatient (CLI) | payer MEDICARE, SELFPAY ==
[2020-06-13 19:13] VITALS: BMI 25.8
[2025-04-28 17:45] LABS: BUN Creatinine Ratio 15.9 (6-22); Blood Urea Nitrogen 18 mg/dL (9-20); Calcium 9.3 mg/dL (8.4-10.2); Carbon Dioxide 27 mmol/L (22-32); Chloride 92 mmol/L (98-107); Estimated Glomerular Filt Rate > 60 mL/min (>60); Glucose 97 mg/dL (70-99); HEMOLYSIS < 15 (0-50); Potassium 4.2 mmol/L (3.4-5.1); Sodium 131 mmol/L (137-145)
[2025-04-28 18:16] LABS: Prostate Specific Antigen Scrn 2.64 ng/mL (0.1-4.0)
[2025-04-28 18:35] LABS: Creatinine Urine Random 99.98 mg/dL
[2025-04-28 18:40] LABS: Microalbumin Urine Random 0.9 mg/dL (0-1.6)
== END ==
PROVIDERS: PCP Family Medicine; Referring Provider Family Medicine; Visit Provider Family Medicine
DX: Z12.5 Encounter for screening for malignant neoplasm of prostate (principal); E87.1 Hypo-osmolality and hyponatremia; I1A.0 Resistant hypertension
CPT/HCPCS: 36415; 80048; 82043; 82570; G0103

== ENCOUNTER → 2025-08-12 09:25 | Outpatient (CLI) | payer MEDICARE, SELFPAY ==
[2020-06-13 19:13] VITALS: BMI 25.8
[2025-08-12 10:16] LABS: Hematocrit 38.9 % (41-53); Hemoglobin 13.3 g/dL (13.5-17.5); Mean Corpuscular HGB Conc 34.1 % (30-36); Mean Corpuscular Hemoglobin 30.0 PG (26-34); Mean Corpuscular Volume 87.9 fL (80-100); Platelet Count 331 X10^3/uL (150-400)
[2025-08-12 10:46] LABS: HEMOLYSIS < 15 (0-50); Iron 88 ug/dL (49-181)
[2025-08-12 10:59] LABS: Percent Iron Saturation 24 % (20-50); Total Iron Binding Capacity 360 ug/dL (261-462); Transferrin 293 mg/dL (206-381)
[2025-08-12 11:22] LABS: Ferritin 91 ng/mL (18-464)
== END ==
PROVIDERS: PCP Family Medicine; Referring Provider Family Medicine; Visit Provider Family Medicine
DX: R53.83 Other fatigue (principal)
CPT/HCPCS: 36415; 82728; 83540; 83550; 85027